=== PATIENT | male | born 1990 | race Caucasian/White ===

== ENCOUNTER 2020-12-31 14:46 | Emergency (ER) | payer MEDICAID ==
[~2020-12-31] VITALS: Ht 180.3 cm; Wt 69.1 kg
[2020-12-31 15:02] VITALS: BP 121/72
== END 2020-12-31 17:49 | disposition home or self-care (01) ==
LOC: ER 14:46
DX: M25.361 Other instability, right knee (principal)
CPT/HCPCS: 73564; 99283